=== PATIENT | male | born 1985 | race Caucasian/White ===

== ENCOUNTER 2024-11-21 16:31 | Emergency (ER) | payer BC, SELFPAY ==
[2024-11-21 16:35] VITALS: BP 145/81
--- NOTE | 2024-11-21 17:27 | ED.GENMED ---
History of Present Illness
General
Chief Complaint: Skin Surface Trauma
Source: patient
Time Seen by Provider: 11/21/24 17:23
History of Present Illness
History of Present Illness:
39-year-old male presenting to the emergency department for evaluation after sustaining laceration to the outer aspect of the right hand at the level of the mid fifth metacarpal last night while using a mandolin to slice vegetables. Last night they
applied quick clot to the affected area and put a dressing on but upon removing the dressing today the area started bleeding again prompting them to come to the ER. Unknown last tetanus (patient declines tetanus update) and is right-hand dominant.
No other injury sustained.
Past History
Past History
ED Past Medical History: None
ED Past Surgical History: None
Social History
Tobacco: Non-smoker
Alcohol: None
Drug: None
Personal:
Living: with family
Review of Systems
Review of Systems
All Other Systems: ROS reviewed and negative except as documented in HPI and ROS
Phy Exam
Physical Exam
Physical Exam:
GENERAL: Alert , in no apparent distress
EYE: conjunctiva clear
Head: Normocephalic atraumatic
NECK: Supple,
ENT: mmm.
LUNGS: no acute respiratory distress
NEUROLOGICAL: Alert and oriented
SKIN: Warm and dry, small less than 1 cm superficial wound to the hypothenar eminence with slight oozing.
MUSCULOSKELETAL: well perfused.
PSYCH: Normal and appropriate interaction.
Scores
Heart Failure Risk
Heart Failure Risk Score: Not Applicable
Heart Score for Chest Pain Patients
STEMI patient?: Not applicable
Withdrawal Assessment of Alcohol
Withdrawal Assessment Completed?: Not applicable
Course
Vital Signs
Initial and Last Documented VS:
Initial Vital Signs
Temp Pulse Resp BP Pulse Ox
98.8 F 94 20 145/81 100
11/21/24 16:35 11/21/24 16:35 11/21/24 16:35 11/21/24 16:35 11/21/24 16:35
Last Documented Vital Signs
Temp Pulse Resp BP Pulse Ox
98.8 F 94 20 145/81 100
11/21/24 16:35 11/21/24 16:35 11/21/24 16:35 11/21/24 16:35 11/21/24 17:27
MDM/Problems Addressed
Differential Diagnosis Includes:
Superficial laceration
no concern for tendon or nerve injury
no concern for fracture
MDM/Problems Addressed:
39-year-old male presenting the ER for evaluation of laceration to the right hand. Laceration dressing was removed and irrigated. Gelfoam and dressing reapplied. Patient advised on wound care as well as care of the Gelfoam. Stable for discharge.
Recommended follow-up with primary care provider for tetanus update.
*Pulse Oximetry
SaO2: 100
Oxygen Mode of Delivery: Room air
Patient hypoxic: no
*Critical Care Note
Total Time (30-74mins, 75-104mins- exclusive of procedures): Not Applicable
ED Attending Note
-
Portions of this chart may have been created with voice recognition software.� Occasional wrong word or��sound alike� substitutions may have occurred due to the inherent limitations of voice recognition software.
Discharge Plan
Departure
Patient Disposition: Home (Routine Discharge)
Date of Disposition: 11/21/24
Time of Disposition: 17:27
Patient with high blood pressure during this ER visit?: Yes
Discharge Problem:
Laceration of hand, right
Instructions: Wound Care (DC)
Prescriptions:
No Action
No Current Medications
0
Interventions
Interventions:
*Risk Screen - Suicide Last Done: 11/21/24 16:35
*General Assessment Last Done: 11/21/24 16:35
*Neglect/Abuse Screening Last Done: 11/21/24 17:30
*ED- Fall Risk Assessment Last Done: 11/21/24 17:30
*ED COVID-19 Vaccine History Last Done: 11/21/24 17:30
*Nursing Disposition Last Done: 11/21/24 17:32
ED-Skin Assessment Last Done: 11/21/24 17:30
Discharge Date and Time
Print Language: KOREAN
[2024-11-21 17:30] VITALS: BP 131/85; BMI 26.8
== END 2024-11-21 17:45 | disposition home or self-care (01) ==
LOC: EMR 16:31
PROVIDERS: EMERGENCY PHYSICIAN Emergency Medicine; FAMILY PHYSICIAN Family Medicine
DX: S61.411A Laceration without foreign body of right hand, initial encounter (principal); W27.4XXA Contact with kitchen utensil, initial encounter
CPT/HCPCS: 99282; 90715